=== PATIENT | female | born 1990 | race Caucasian/White ===

== ENCOUNTER 2018-02-02 16:03 | Emergency (ER) | payer OTHER ==
[2018-02-02 16:54] VITALS: BP 128/68
--- NOTE | 2018-02-02 17:47 | UC ---
Bite Injury/Animal HPI - HPI Summary HPI Summary: 27 yo female c/o bat bite L 2nd digit, occurred Thursday (today is Thursday). Incident occurred while trying to molded goods spot picker a bat outside her house, that she thought might be injured. Bat bit her through her garden glove. No active bleeding. Initially reported incident to her PCP at check up today, prompting Health Dept notification. - History of Current Complaint Chief Complaint: UCBiteInjury Stated Complaint: BAT EXPOSURE Time Seen by Provider: 02/02/18 17:34 Hx Obtained From: Patient Hx Last Menstrual Period: 01/15/2018 Pain Intensity: 0 - Allergies/Home Medications Allergies/Adverse Reactions: Allergies Allergy/AdvReac Type Severity Reaction Status Date / Time No Known Allergies Allergy Verified 02/02/18 16:54 Home Medications: Home Medications NK [No Home Medications Reported] 02/02/18 [History Confirmed 02/02/18] PMH/Surg Hx/FS Hx/Imm Hx Previously Healthy: Yes - Surgical History Surgical History: None - Family History Known Family History: Positive: None - Social History Alcohol Use: None Substance Use Type: None Smoking Status (MU): Never Smoked Tobacco - Immunization History Most Recent Tetanus Shot: 10/2013 Review of Systems Constitutional: Negative Skin: Other - see hpi Eyes: Negative ENT: Negative Respiratory: Negative Cardiovascular: Negative Gastrointestinal: Negative Genitourinary: Negative Motor: Other - see hpi Neurovascular: Negative Musculoskeletal: Negative Neurological: Negative Psychological: Negative Is Patient Immunocompromised?: No All Other Systems Reviewed And Are Negative: Yes Physical Exam Triage Information Reviewed: Yes Appearance: Well-Appearing, Well-Nourished Vital Signs: Initial Vital Signs Temp 99.6 F 02/02/18 16:51 Pulse 71 02/02/18 16:51 Resp 18 02/02/18 16:51 BP 128/68 02/02/18 16:51 Pulse Ox 97 02/02/18 16:51 Vital Signs Reviewed: Yes Eye Exam: Normal - grossly normal ENT Exam: Normal - grossly normal Neck exam: Normal Neck: Positive: Supple Respiratory Exam: Normal - RR normal. No dyspnea, no tachypnea. Respiratory: Positive: Chest non-tender Cardiovascular Exam: Normal - HR normal. Nondiaphoretic. Abdominal Exam: Normal Abdomen Description: Positive: Nontender Musculoskeletal Exam: Other - L 2nd digit without break in skin or blood grossly visible. FROM. Cap refill good. + distal sens LT present. Neurological Exam: Normal - distal sens present to LT. Cap refill Psychological Exam: Normal Skin Exam: Normal - see musc skel Remainder nad. nondiaphoretic. Bite Injury Course/Dx - Course Course Of Treatment: Health Dept notified, ok'd rabies vaccination series and rig. 1ml injected into L index finger by myself (ie close to the bite site). Remainder per RN as noted in RN notes. Questions as posed answered to the best of my ability. - Differential Dx/Diagnosis Provider Diagnoses: Bat bite Discharge - Sign-Out/Discharge Documenting (check all that apply): Patient Departure All imaging exams completed and their final reports reviewed: No Studies - Discharge Plan Condition: Stable Disposition: HOME Patient Education Materials: Rabies Vaccine (By injection), Rabies Immune Globulin (By injection), Animal Bite (ED) Referrals: Bridger Newman MD [Primary Care Provider] - Additional Instructions: Please follow up with your primary care physician, per routine. Please call the office tomorrow to advise them that you were seen here, and have initiated the rabies vaccination series. Follow up vaccination schedule, per the Health Department. Please seek medical attention for any problems. Elevate your left hand as possible. - Billing Disposition and Condition Condition: STABLE Disposition: Home
[2018-02-02] MEDS ORDERED: Rabies Immune Globulin 10 ML* 150 UNIT/ML VIAL IM ONE (17:51)
[2018-02-02] MEDS ORDERED: Rabies VIRUS VACCINE (Imovax)* 2.5 UNIT/ML 1 ML IM ONE (17:53)
== END 2018-02-02 19:00 | disposition home or self-care (01) ==
LOC: UCEAST 16:03
DX: Z20.3 Contact with and (suspected) exposure to rabies (principal); Z23 Encounter for immunization
CPT/HCPCS: 90375; 90471; 96372; 99201; G0463